=== PATIENT | female | born 1985 | race African-American/Black ===

== ENCOUNTER 2021-01-02 11:18 | Emergency (ER) | payer OTHER ==
[~2021-01-02] VITALS: Ht 165.1 cm; Wt 80.0 kg
[2021-01-02] MEDS ORDERED: SODIUM CHLORIDE 0.9% 1,000 ML IV ONE (11:45)
[2021-01-02] MEDS ORDERED: DIPHENHYDRAMINE 50MG/ML VIAL IM ONE (12:00)
[2021-01-02] MEDS ORDERED: HALOPERIDOL LACTATE 5MG/ML VIAL IM ONE (12:00)
[2021-01-02 14:22] LABS: BASOPHILS % 1.1 % (0.0-2.0); EOSINOPHILS % 5.5 % (0.0-5.0); HEMOGLOBIN. 10.7 g/dL (12.0-16.0); LYMPHOCYTES % 47.3 % (20.0-50.0); MEAN CORPUSCULAR VOLUME 89.6 fL (81.0-99.0); MEAN PLATELET VOLUME 9.5 fl (7.4-10.4); NEUTROPHILS % 33.1 % (40.0-76.0); PLATELET 293 x1000/uL (130-400); RED BLOOD CELL COUNT 3.57 mill/uL (4.2-5.4); RED CELL DISTRIBUTION WIDTH 13.5 % (11.6-14.6)
[2021-01-02 14:27] LABS: CHLORIDE 110 mEq/L (98-107)
[2021-01-02 14:32] LABS: ETHANOL BLOOD < 10 mg/dL
[2021-01-02 14:57] LABS: HCG SCREEN NEGATIVE
[2021-01-02 18:34] LABS: CLARITY URINE TURBID (CLEAR); COLOR URINE YELLOW (YELLOW); KETONES URINE TRACE (NEGATIVE); LEUKOCYTE ESTERASE URINE 2+ (NEGATIVE); NITRITE URINE NEGATIVE (NEGATIVE); OCCULT BLOOD URINE NEGATIVE (NEGATIVE); PH URINE 5.5 (4.5-8.0); PROTEIN URINE 1+ (NEGATIVE); SPECIFIC GRAVITY URINE 1.023 (1.005-1.030)
[2021-01-02 19:33] LABS: *BARBITURATES SCREEN URINE NEGATIVE (NEGATIVE); *BENZODIAZEPINES SCREEN URINE NEGATIVE (NEGATIVE); *COCAINE SCREEN URINE NEGATIVE (NEGATIVE)
[2021-01-02 19:34] LABS: METHADONE URINE SCREEN NEGATIVE (NEGATIVE); OPIATES URINE SCREEN NEGATIVE (NEGATIVE); PHENCYCLIDINE URINE SCREEN NEGATIVE (NEGATIVE)
[2021-01-02 20:08] LABS: *AMPHETAMINES SCREEN URINE PRESUMTIVE POSITIVE (NEGATIVE); CANNABINOID URINE SCREEN PRESUMTIVE POSITIVE (NEGATIVE)
[2021-01-02 22:35] VITALS: BP 121/83
== END 2021-01-02 22:45 | disposition home or self-care (01) ==
LOC: ER 11:26 → EDBD 11:26 → ER 22:45
DX: F29 Unspecified psychosis not due to a substance or known physiological condition (principal); G92 Toxic encephalopathy; D64.9 Anemia, unspecified; R41.82 Altered mental status, unspecified; F19.10 Other psychoactive substance abuse, uncomplicated; E86.0 Dehydration
CPT/HCPCS: 36415; 80053; 80305; 80307; 80320; 80329; 81003; 82140; 84703; 85025; 87086; 96360; 96372; 99285; J1200; J1630; J7030; Z7610; G0480

== ENCOUNTER 2021-10-06 17:22 | Emergency (ER) | payer MEDICAID, OTHER ==
[~2021-10-06] VITALS: Ht 165.1 cm; Wt 63.0 kg
[2021-10-06 17:55] VITALS: BP 120/78
[2021-10-07] MEDS ORDERED: ACET-2708 MT (11:47)
[2021-10-07] MEDS ORDERED: DOXY100C5 MT (11:47)
== END 2021-10-06 17:37 | disposition left against medical advice (07) ==
LOC: ER 17:22
DX: Z53.21 Procedure and treatment not carried out due to patient leaving prior to being seen by health care provider (principal)

== ENCOUNTER 2021-10-07 06:16 | Emergency (ER) | payer MEDICAID ==
[~2021-10-07] VITALS: Ht 165.1 cm; Wt 76.0 kg
[2021-10-07 07:24] VITALS: BP 131/85
[2021-10-07] MEDS ORDERED: SODIUM CHLORIDE 0.9% 1,000 ML IV ONE (08:15)
[2021-10-07] MEDS ORDERED: ACETAMINOPHEN 325MG TABLET PO ONE (08:15)
[2021-10-07 10:18] LABS: BASOPHILS % 0.9 % (0.0-2.0); EOSINOPHILS % 8.2 % (0.0-5.0); HEMATOCRIT. 36.1 % (36.0-48.0); HEMOGLOBIN. 11.6 g/dL (12.0-16.0); LYMPHOCYTES % 35.2 % (20.0-50.0); MEAN CORPUSCULAR HEMOGLOBIN 28.9 pg (28.0-32.0); MEAN CORPUSCULAR VOLUME 89.5 fL (81.0-99.0); MEAN PLATELET VOLUME 9.4 fl (7.4-10.4); MONOCYTES % 10.7 % (2.0-8.0); PLATELET 229 x1000/uL (130-400); RED BLOOD CELL COUNT 4.03 mill/uL (4.2-5.4); RED CELL DISTRIBUTION WIDTH 13.7 % (11.6-14.6)
[2021-10-07 10:29] LABS: CHLORIDE 110 mEq/L (98-107)
[2021-10-07 10:32] LABS: HCG SCREEN NEGATIVE
[2021-10-07] MEDS ORDERED: DOXYCYCLINE HYCLATE 100MG CAPSULE PO ONE (11:45)
[2021-10-07] MEDS ORDERED: GENTAMICIN SULF 40MG/ML 2ML VIAL IM ONE (11:45)
[2021-10-07] MEDS ORDERED: ACET-2708 MT (11:47)
[2021-10-07] MEDS ORDERED: DOXY100C5 MT (11:47)
[2021-10-09 09:06] LABS: NEISSERIA GONORRHOEAE NAA Negative (Negative)
== END 2021-10-07 12:41 | disposition home or self-care (01) ==
LOC: ER 06:16
DX: N83.202 Unspecified ovarian cyst, left side (principal); D72.819 Decreased white blood cell count, unspecified; N73.9 Female pelvic inflammatory disease, unspecified; Z88.0 Allergy status to penicillin
CPT/HCPCS: 36415; 76830; 76856; 80053; 84703; 85025; 86850; 86900; 86901; 87210; 87491; 87591; 96372; 99284; J1580; J7030

== ENCOUNTER 2022-10-06 18:14 | Emergency (ER) | payer MEDICAID, OTHER ==
[~2022-10-06] VITALS: Ht 177.8 cm; Wt 100.0 kg
[~2022-10-06 18:14] MED LIST: ACET-2708 MT; DOXY100C5 MT
[2022-10-06 18:27] VITALS: O2SAT 100
[2022-10-06 19:20] LABS: BASOPHILS % 0.7 % (0.0-2.0); EOSINOPHILS % 4.2 % (0.0-5.0); HEMATOCRIT. 36.4 % (36.0-48.0); HEMOGLOBIN. 11.8 g/dL (12.0-16.0); LYMPHOCYTES % 31.4 % (20.0-50.0); MEAN CORPUSCULAR HEMOGLOBIN 28.6 pg (28.0-32.0); MEAN CORPUSCULAR VOLUME 87.8 fL (81.0-99.0); MONOCYTES % 8.4 % (2.0-8.0); NEUTROPHILS % 55.3 % (40.0-76.0); PLATELET 231 x1000/uL (130-400); RED BLOOD CELL COUNT 4.14 mill/uL (4.2-5.4); RED CELL DISTRIBUTION WIDTH 13.9 % (11.6-14.6)
[2022-10-06 19:26] LABS: CHLORIDE 108 mEq/L (98-107)
[2022-10-06 19:28] LABS: HCG SCREEN NEGATIVE
[2022-10-06 19:34] LABS: ETHANOL BLOOD < 10 mg/dL (-10)
[2022-10-07 04:46] LABS: CLARITY URINE CLEAR (CLEAR); COLOR URINE YELLOW (YELLOW); KETONES URINE TRACE (NEGATIVE); LEUKOCYTE ESTERASE URINE NEGATIVE (NEGATIVE); NITRITE URINE NEGATIVE (NEGATIVE); OCCULT BLOOD URINE NEGATIVE (NEGATIVE); PH URINE 5.5 (4.5-8.0); PROTEIN URINE TRACE (NEGATIVE); SPECIFIC GRAVITY URINE 1.031 (1.005-1.030)
[2022-10-07 04:57] LABS: *BARBITURATES SCREEN URINE NEGATIVE (NEGATIVE); *BENZODIAZEPINES SCREEN URINE NEGATIVE (NEGATIVE); *COCAINE SCREEN URINE NEGATIVE (NEGATIVE); METHADONE URINE SCREEN NEGATIVE (NEGATIVE); OPIATES URINE SCREEN NEGATIVE (NEGATIVE)
[2022-10-07 05:01] LABS: *AMPHETAMINES SCREEN URINE PRESUMTIVE POSITIVE (NEGATIVE); CANNABINOID URINE SCREEN PRESUMTIVE POSITIVE (NEGATIVE); PHENCYCLIDINE URINE SCREEN PRESUMTIVE POSITIVE (NEGATIVE)
[2022-10-07 10:23] VITALS: BP 116/66; PULSE 69; RESP 16; TEMP 98.3
== END 2022-10-07 11:30 | disposition home or self-care (01) ==
LOC: ER 18:14
DX: R44.0 Auditory hallucinations (principal); F10.229 Alcohol dependence with intoxication, unspecified; Y90.0 Blood alcohol level of less than 20 mg/100 ml
CPT/HCPCS: 36415; 80048; 80076; 80305; 80307; 80320; 80329; 81003; 84703; 85025; 99283; G0480